=== PATIENT | male | born 1990 | race Caucasian/White ===

== ENCOUNTER 2017-11-05 16:51 | Inpatient (IN) ==
[2017-11-05] MEDS ORDERED: Sod Chloride 0.9% Inj 1,000 ML IV.SIG ONE ×2 (18:17→18:40)
[2017-11-05] MEDS ORDERED: Acetaminophen 500 MG Tablet PO ONE (18:22)
[2017-11-05 18:35] LABS: Baso # (Auto) 0.3 th/mm3 (0.0-0.2); Baso % (Auto) 1.3 % (0.0-2.0); Hemoglobin 15.2 gm/dL (13.0-17.0); Lymph % (Auto) 3.9 % (9.0-44.0); Mean Corpuscular HGB Conc 34.5 % (32.0-36.0); Mean Corpuscular Hemoglobin 31.5 pg (27.0-34.0); Mean Corpuscular Volume 91.3 fL (80.0-100.0); Mean Platelet Volume 7.1 fL (7.0-11.0); Mono # (Auto) 0.4 th/mm3 (0.0-0.9); Mono % (Auto) 1.6 % (0.0-8.0); Neut # (Auto) 23.6 th/mm3 (1.8-7.7); Neut % (Auto) 93.2 % (16.0-70.0); Platelet Count 275 th/mm3 (150-450); Red Blood Count 4.82 mil/mm3 (4.50-5.90); Red Cell Distribution Width 11.8 % (11.6-17.2); White Blood Count 25.3 th/mm3 (4.0-11.0)
[2017-11-05 18:43] LABS: Chloride 100 meq/L (98-107); Potassium 3.6 meq/L (3.5-5.1); Sodium 136 meq/L (136-145)
[2017-11-05 18:46] LABS: Bilirubin,Urine Negative (Negative); Clarity,Urine Clear (Clear); Color,Urine Yellow (Yellw/Straw); Glucose,Urine (UA) Negative (Negative); Leukocyte Esterase,Urine Negative (Negative); Nitrite,Urine Negative (Negative); PH,Urine 7.5 (5.0-8.5); Urobilinogen,Urine 0.2 mg/dL (Less than 2)
[2017-11-05 18:46] LABS: Calcium 8.9 mg/dL (8.5-10.1)
[2017-11-05 18:47] LABS: Albumin 4.3 g/dL (3.4-5.0); Anion Gap 7 meq/L (5-15); Blood Urea Nitrogen 16 mg/dL (7-18); Carbon Dioxide 28.9 meq/L (21.0-32.0); Glucose,Random 110 mg/dL (74-106); Lipase 64 U/L (73-393)
[2017-11-05 18:50] LABS: Alanine Aminotransferase 45 U/L (12-78); Aspartate Aminotransferase 23 U/L (15-37); Glomerular Filtration Rate 73 mL/min (>89)
[2017-11-05 18:51] LABS: Total Protein 7.6 g/dL (6.4-8.2)
[2017-11-05 18:51] LABS: RBC,Urine 0-3 /hpf (0-3); Squamous Epithelial Cell,Urine 0-5 /hpf (0-5); WBC,Urine 0-5 /hpf (0-5)
[2017-11-05 18:52] LABS: Alkaline Phosphatase 82 U/L (45-117)
[2017-11-05] MEDS ORDERED: Piperacil/Tazo 3.375 GM Premix 50 ML IV.SIG ONE (19:35)
[2017-11-05] MEDS ORDERED: Vancomycin Inj 1 GM/200 ML PIGGYBACK IV.SIG ONE (19:35)
--- NOTE | 2017-11-05 19:43 | ED ---
HPI General Chief Complaint: Ear Stated Complaint: Bilateral ear pain/fever x2-3days Time Seen by Provider: 11/05/17 18:11 Source: patient Mode of arrival: ambulatory Limitations: no limitations History of Present Illness HPI narrative: 27-year-old male complains of headache, earache, abdominal pain, shaking chills. Patient states that the symptoms started last night. Patient states that he has mild aching headache. Patient complains of earache and pressure on the ears. Patient was on an airplane trip and had severe ear pain during landing. Patient denies any neck pain. Patient denies any chest pain or shortness of breath. Patient denies any coughing. Patient states that he has diffuse cramping abdominal pain since last night. Patient denies any pain radiation. Patient states that he has nausea but no vomiting or diarrhea. Patient denies any dysuria or frequency. Patient complained of back pain. Patient complained extremity pain also. Patient denies any recent sick contact. MD complaint: abdominal pain Onset (ago): hour(s) Pain Consistency: constant Location: diffuse Severity: moderate Severity scale (1-10): 7 Quality: cramping Radiation: none Migration to: no migration Relieving factors: nothing Exacerbating factors: nothing Associated symptoms: nausea and chills Related Data Home Medications Medication Instructions Recorded Confirmed No Known Home Medications 11/05/17 11/05/17 Allergies Allergy/AdvReac Type Severity Reaction Status Date / Time No Known Allergies Allergy Verified 11/05/17 17:07 Review of Systems ROS: all other systems reviewed are negative PMFSH Medical History Medical History History of deviated nasal septum (Acute) Surgical History Surgical History History of placement of ear tubes (Acute) History of tonsillectomy and adenoidectomy (Acute) Social History Social History Substance History: No History of Abuse Smoking Status: Never smoker How Often Do You Have a Drink Containing Alcohol: Never Recent Travel in [facility] within the Last 8 Weeks: No Recent Out of Country Travel within the Last 8 Weeks: No Immunization History Tetanus Immunization: >5 Years Hx Influenza Vaccine This Season: No Exam Narrative Exam Narrative: GENERAL: Well-nourished, well-developed patient. SKIN: Focused skin assessment warm/dry. HEAD: Normocephalic. EYES: No scleral icterus. No injection or drainage. Both TM nonerythematous. Mild effusion behind the TM. Throat: Nonerythematous. NECK: Supple, trachea midline. No JVD or lymphadenopathy. No meningismus CARDIOVASCULAR: Regular rate and rhythm without murmurs, gallops, or rubs. RESPIRATORY: Breath sounds equal bilaterally. No accessory muscle use. GASTROINTESTINAL: Abdomen soft, nondistended. Patient has moderate tenderness on palpation of the abdomen. No rebound tenderness. Mild guarding noted. No mass. MUSCULOSKELETAL: No cyanosis, or edema. BACK: Nontender without obvious deformity. No CVA tenderness. Course Initial Documented Vital Signs Temperature 100.2 F H 11/05/17 17:04 Pulse Rate 115 H 11/05/17 17:04 Respiratory Rate 16 11/05/17 17:04 Blood Pressure 130/68 11/05/17 17:04 Pulse Oximetry 95 11/05/17 17:04 Last Documented Vital Signs Temperature 102.3 F H 11/05/17 18:17 Pulse Rate 105 H 11/05/17 19:49 Respiratory Rate 18 11/05/17 19:49 Blood Pressure 111/57 L 11/05/17 19:49 Pulse Oximetry 96 11/05/17 19:49 Medical Decision Making MDM Narrative Medical decision making narrative: 27-year-old male with chills, headache, abdominal pain, body ache. Normal saline solution 1 L IV bolus. Vancomycin 1 g IV. Zosyn 3.375 g IV given. Flagyl 500 mg IV given. Medical Screen Exam Complete: Yes Emergency Medical Condition: Yes Differential Diagnosis Differential Diagnosis: Differential diagnosis including viral syndrome, otitis media, pharyngitis, bronchitis, pneumonia, colitis, UTI, pyelonephritis, nephrolithiasis, appendicitis, sepsis. Lab Data Result diagrams: 11/05/17 18:25 11/05/17 18:25 Lab Results 11/05/17 11/05/17 11/05/17 Range/Units 18:25 18:25 18:43 CBC w Diff Auto diff final WBC 25.3 H (4.0-11.0) th/mm3 RBC 4.82 (4.50-5.90) mil/mm3 Hgb 15.2 (13.0-17.0) gm/dL Hct 44.0 (39.0-51.0) % MCV 91.3 (80.0-100.0) fL MCH 31.5 (27.0-34.0) pg MCHC 34.5 (32.0-36.0) % RDW 11.8 (11.6-17.2) % Plt Count 275 (150-450) th/mm3 MPV 7.1 (7.0-11.0) fL Neut % (Auto) 93.2 H (16.0-70.0) % Lymph % (Auto) 3.9 L (9.0-44.0) % [place] % (Auto) 1.6 (0.0-8.0) % Eos % (Auto) 0.0 (0.0-4.0) % Baso % (Auto) 1.3 (0.0-2.0) % Neut # (Auto) 23.6 H (1.8-7.7) th/mm3 Lymph # (Auto) 1.0 (1.0-4.8) th/mm3 [place] # (Auto) 0.4 (0.0-0.9) th/mm3 Eos # (Auto) 0.0 (0.0-0.4) th/mm3 Baso # (Auto) 0.3 H (0.0-0.2) th/mm3 WBC Differential . Differential Comment . Sodium 136 (136-145) meq/L Potassium 3.6 (3.5-5.1) meq/L Chloride 100 (98-107) meq/L Carbon Dioxide 28.9 (21.0-32.0) meq/L Anion Gap 7 (5-15) meq/L BUN 16 (7-18) mg/dL Creatinine 1.20 (0.60-1.30) mg/dL Estimated GFR 73 L (>89) mL/min Random Glucose 110 H (74-106) mg/dL Lactic Acid (0.4-2.0) mmol/L Calcium 8.9 (8.5-10.1) mg/dL Total Bilirubin 1.7 H (0.2-1.0) mg/dL AST 23 (15-37) U/L ALT 45 (12-78) U/L Alkaline Phosphatase 82 (45-117) U/L Total Protein 7.6 (6.4-8.2) g/dL Albumin 4.3 (3.4-5.0) g/dL Lipase 64 L (73-393) U/L Urine Color Yellow (Yellw/Straw) Urine Clarity Clear (Clear) Urine pH 7.5 (5.0-8.5) Ur Specific [place] 1.010 (1.002-1.035) Urine Protein 30 H (Neg-Trace) mg/dL Urine Glucose (UA) Negative (Negative) mg/dL Urine Ketones Negative (Negative) mg/dL Urine Occult Blood Negative (Negative) Urine Nitrate Negative (Negative) Urine Bilirubin Negative (Negative) Urine Urobilinogen 0.2 (Less than 2) mg/dL Ur Leukocyte Esterase Negative (Negative) Urine RBC 0-3 (0-3) /hpf Urine WBC 0-5 (0-5) /hpf Ur Squamous Epith Cells 0-5 (0-5) /hpf Micro UA Comment Culture not ind Ur Microscopic Review Microscopic reviewed Urine Culture Comments Culture not ind 11/05/17 Range/Units 18:50 CBC w Diff WBC (4.0-11.0) th/mm3 RBC (4.50-5.90) mil/mm3 Hgb (13.0-17.0) gm/dL Hct (39.0-51.0) % MCV (80.0-100.0) fL MCH (27.0-34.0) pg MCHC (32.0-36.0) % RDW (11.6-17.2) % Plt Count (150-450) th/mm3 MPV (7.0-11.0) fL Neut % (Auto) (16.0-70.0) % Lymph % (Auto) (9.0-44.0) % [place] % (Auto) (0.0-8.0) % Eos % (Auto) (0.0-4.0) % Baso % (Auto) (0.0-2.0) % Neut # (Auto) (1.8-7.7) th/mm3 Lymph # (Auto) (1.0-4.8) th/mm3 [place] # (Auto) (0.0-0.9) th/mm3 Eos # (Auto) (0.0-0.4) th/mm3 Baso # (Auto) (0.0-0.2) th/mm3 WBC Differential Differential Comment Sodium (136-145) meq/L Potassium (3.5-5.1) meq/L Chloride (98-107) meq/L Carbon Dioxide (21.0-32.0) meq/L Anion Gap (5-15) meq/L BUN (7-18) mg/dL Creatinine (0.60-1.30) mg/dL Estimated GFR (>89) mL/min Random Glucose (74-106) mg/dL Lactic Acid 2.1 H (0.4-2.0) mmol/L Calcium (8.5-10.1) mg/dL Total Bilirubin (0.2-1.0) mg/dL AST (15-37) U/L ALT (12-78) U/L Alkaline Phosphatase (45-117) U/L Total Protein (6.4-8.2) g/dL Albumin (3.4-5.0) g/dL Lipase (73-393) U/L Urine Color (Yellw/Straw) Urine Clarity (Clear) Urine pH (5.0-8.5) Ur Specific [place] (1.002-1.035) Urine Protein (Neg-Trace) mg/dL Urine Glucose (UA) (Negative) mg/dL Urine Ketones (Negative) mg/dL Urine Occult Blood (Negative) Urine Nitrate (Negative) Urine Bilirubin (Negative) Urine Urobilinogen (Less than 2) mg/dL Ur Leukocyte Esterase (Negative) Urine RBC (0-3) /hpf Urine WBC (0-5) /hpf Ur Squamous Epith Cells (0-5) /hpf Micro UA Comment Ur Microscopic Review Urine Culture Comments Imaging Data Radiologist's impression: Abdomen/Pelvis CT 11/05/17 18:37 CONCLUSION: 1. Abnormal appearance to the transverse colon with mucosal thickening causing a cobblestone appearance. This is a nonspecific finding and can be seen with Crohn's disease, infectious, and lymphoproliferative disorders. 2. Nonobstructing 5 mm right renal stone. Chest X-Ray 11/05/17 18:37 CONCLUSION: The lungs are clear. Discharge Plan Discharge Disposition Patient Disposition: 30 Still Patient Discharge Details Diagnosis: Sepsis, Colitis Physicians Team ED Provider: Tom Alvarenga ED Midlevel Provider: Janina Conrad Primary Care Provider: Primary Care Physici,No Rxs /Orders / Referrals /Forms Prescriptions: No Action No Known Home Medications RF: 0 Discharge Interventions Interventions: Vital Signs Last Done: 11/05/17 19:49 Status ED Status: With Doctor
--- NOTE | 2017-11-05 19:58 | XR ---
EXAM DATE: 11/05/2017 6:37 PM EDT AGE/SEX: 27 years / Male INDICATIONS: Fever. CLINICAL DATA: This is the patient's initial encounter. Patient reports that signs and symptoms have been present for 1 day and indicates a pain score of 0/10. MEDICAL/SURGICAL HISTORY: None. None. COMPARISON: No prior exams available for comparison. FINDINGS: A single AP view of the chest demonstrates the lungs to be symmetrically aerated without evidence of mass, infiltrate or effusion. The cardiomediastinal contours are unremarkable. Osseous structures a re intact. CONCLUSION: The lungs are clear. Electronically signed by: Brett Marcelo MD 11/05/2017 7:57 PM EDT
[2017-11-05] MEDS ORDERED: Vancomycin Inj 1,000 MG in Sodium Chlor 0.9% Inj 250 ML IV.SIG ONE (20:00)
--- NOTE | 2017-11-05 21:13 | CT ---
EXAM DATE: 11/05/2017 7:51 PM EDT AGE/SEX: 27 years / Male INDICATIONS: Non-specific abdominal pain. CLINICAL DATA: This is the patient's initial encounter. Patient reports that signs and symptoms have been present for 1 day and indicates a pain score of 3/10. MEDICAL/SURGICAL HISTORY: None. None. ORAL CONTRAST: No oral contrast ingested. RADIATION DOSE: 6.26 CTDI (mGy) COMPARISON: No prior exams available for comparison. TECHNIQUE: Multiple contiguous axial images were obtained through the abdomen and pelvis following b olus infusion of 95 ml Omnipaque 350 (iohexol) nonionic water-soluble contrast as a single exam dos e. No oral contrast ingested. Using automated exposure control and adjustment of the mA and/or kV ac cording to patient size, radiation dose was kept as low as reasonably achievable to obtain optimal di agnostic quality images. DICOM format image data is available electronically for review and comparis on. FINDINGS: Lower Lungs: The visualized lower lungs are clear. Liver: The liver has a homogeneous density without space-occupying lesion. There is no dilation of th e biliary tree. Spleen: Homogeneous density without enlargement. Pancreas: Unremarkable without mass or calcification. Kidneys: Normal in size and shape. No evidence of mass or hydronephrosis. 5 mm nonobstructing stone mid to upper pole calyx right kidney. No calcifications along the course of either ureter. Adrenal Glands: Unremarkable. Aorta: The aorta and proximal iliac vessels are grossly unremarkable without aneurysmal dilation. Bowel/Mesentery: There is an abnormal appearance to the transverse colon with wall thickening causin g a cobblestone configuration. No dilated loops of small or large bowel. Abdominal Wall: Intact. Retroperitoneum: No evidence of adenopathy in the retrocrural, para-aortic, or deep pelvic regions. Bladder: Contours are smooth. Reproductive Organs: No abnormal masses or calcifications seen. Inguinal: The inguinal region is unremarkable without evidence of adenopathy. Bony Structures: Unremarkable. CONCLUSION: 1. Abnormal appearance to the transverse colon with mucosal thickening causing a cobblestone appeara nce. This is a nonspecific finding and can be seen with Crohn's disease, infectious, and lymphoprolif erative disorders. 2. Nonobstructing 5 mm right renal stone. Electronically signed by: Brett Marcelo MD 11/05/2017 9:12 PM EDT
[2017-11-05] MEDS ORDERED: Bisacodyl 10 MG Supp RECTAL PRN (21:58)
[2017-11-05] MEDS ORDERED: Piperacil/Tazo 3.375 GM Premix 50 ML IV.SIG SCH (22:00)
[2017-11-05] MEDS: Sod Chloride 0.9% Inj 1,000 ML IV.CONT SCH (22:43)
[2017-11-05 22:58] LABS: Amphetamine Screen,Urine Neg (Neg); Barbiturate Screen,Urine Neg (Neg); Cannabinoid Screen,Urine Neg (Neg)
[2017-11-05 22:59] LABS: Cocaine Screen,Urine Neg (Neg)
[2017-11-05 23:10] LABS: Opiate Screen,Urine Neg (Neg)
[2017-11-06] MEDS: Piperacil/Tazo 3.375 GM Premix 50 ML IV.SIG SCH ×4 (02:36→20:06)
[2017-11-06 05:10] LABS: Baso # (Auto) 0.1 th/mm3 (0.0-0.2); Baso % (Auto) 0.4 % (0.0-2.0); Eos % (Auto) 0.2 % (0.0-4.0); Hemoglobin 12.3 gm/dL (13.0-17.0); Lymph % (Auto) 6.5 % (9.0-44.0); Mean Corpuscular HGB Conc 34.2 % (32.0-36.0); Mean Corpuscular Hemoglobin 31.5 pg (27.0-34.0); Mean Corpuscular Volume 92.1 fL (80.0-100.0); Mean Platelet Volume 7.6 fL (7.0-11.0); Mono # (Auto) 0.4 th/mm3 (0.0-0.9); Mono % (Auto) 2.7 % (0.0-8.0); Neut # (Auto) 14.3 th/mm3 (1.8-7.7); Neut % (Auto) 90.2 % (16.0-70.0); Platelet Count 208 th/mm3 (150-450); Red Blood Count 3.91 mil/mm3 (4.50-5.90); Red Cell Distribution Width 12.3 % (11.6-17.2); White Blood Count 15.8 th/mm3 (4.0-11.0)
[2017-11-06 05:25] LABS: Albumin 3.2 g/dL (3.4-5.0); Anion Gap 6 meq/L (5-15); Blood Urea Nitrogen 11 mg/dL (7-18); Calcium 7.8 mg/dL (8.5-10.1); Carbon Dioxide 26.7 meq/L (21.0-32.0); Chloride 109 meq/L (98-107); Glucose,Random 104 mg/dL (74-106); Potassium 3.7 meq/L (3.5-5.1); Sodium 142 meq/L (136-145)
[2017-11-06 05:30] LABS: Alanine Aminotransferase 33 U/L (12-78); Alkaline Phosphatase 62 U/L (45-117); Aspartate Aminotransferase 17 U/L (15-37); Glomerular Filtration Rate Greater Than 89 mL/min (>89); Total Protein 5.8 g/dL (6.4-8.2)
[2017-11-06] MEDS: Acetaminophen 325 MG Tablet PO PRN ×2 (06:22→14:19)
[2017-11-06] MEDS: Sod Chloride 0.9% Inj 1,000 ML IV.CONT SCH ×2 (09:04→20:06)
--- NOTE | 2017-11-06 11:44 | P.HPIM ---
History of Present Illness Primary Care Physician: No Primary Care Physician History of Present Illness: Mr. Aguero is a 27-year-old male. He was admitted secondary to sepsis with evidence of colitis. He also complained of bilateral ear pain. He noticed his ear pain upon flying back from [place]. 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 Recurrent otitis media is a problem for him. Abdominal pain and diarrhea are present at time of admit and remain present this morning. Imaging showed evidence of colitis. GI has been consulted. Overall he is feeling better this morning. He is receiving Flagyl and Zosyn as treatments. - Diagnosis (1) Sepsis (2) Colitis Inpatient Certification: I certify that the inpatient services were ordered in accordance with Medicare regulations governing the order. This includes certification that hospital inpatient services are reasonable and necessary and in the case of services not specified as inpatient-only under 42 CFR 419.22(n), that they are appropriately provided as inpatient services in accordance to with the 2-midnight benchmark under 43 CFR 412.3(e) Estimated Total Length of Stay (Days): 2 Plans for Post Hospital Care: Home Review of Systems Constitutional: No fevers, no chills no night sweats, no fatigue, no weakness Eyes: No eye pain, no blurry vision, no loss of vision ENT: No sore throat, bilateral ear pain, no rhinorrhea Cardiovascular: No chest pain, no tachycardia, no palpitations, no shortness of breath, no syncope Respiratory: No wheezing, no cough, no shortness of breath Gastrointestinal: abdominal pain, no black tarry stools, no bright red blood per rectum, no vomiting, diarrhea Musculoskeletal: No joint pain, no muscle cramps, no stiffness Integumentary: No rash, no ulcers, no drainage Neurologic: No sensory loss, no loss of motor function, no dizziness Psychiatric: No behavioral changes, no hallucinations, no suicidal ideations PMFSH - History History Provided By: Patient - Medical History Medical History: Medical History (Last Reviewed 11/05/17 @ 19:40 by Tom Alvarenga MD) History of deviated nasal septum - Surgical History Surgical History: Surgical History (Last Reviewed 11/05/17 @ 19:40 by Tom Alvarenga MD) History of placement of ear tubes History of tonsillectomy and adenoidectomy - Family History Family History: Family History (Last Updated 11/06/17 @ 11:40 by Terrell Singh MD) Other Osteoarthritis - Tobacco History Second Hand Smoke Exposure: Yes Tobacco Use In Past 30 Days: Yes Smoking Status: Current every day smoker Tobacco Type: E-Cigarettes - Alcohol History How Often Do You Have a Drink Containing Alcohol: Monthly or less - Substance Use History Substance History: No History of Abuse - Travel History Recent Travel in the [place] Within the Last 8 Weeks: No Recent Travel Out of the Country Within the Last 8 Weeks: No - Immunization History Tetanus Immunization: <5 Years Hx Influenza Vaccine This Season: No Medications and Allergies Active Medications: Active Medications Acetaminophen (Tylenol) 650 mg PO Q4H PRN PRN Reason: escamilla or fever Last Admin: 11/06/17 06:22 Dose: 650 mg Al Hydroxide/Mg Hydroxide (Milk Of Magnesia Liq) 30 ml PO Q12H PRN PRN Reason: Mild Constipation Bisacodyl (Dulcolax Supp) 10 mg RECTAL DAILY PRN PRN Reason: SEVERE CONSITIPATION Sodium Chloride (Ns Inj) 1,000 mls @ 100 mls/hr IV.CONT .Q10H [facility] Last Admin: 11/06/17 09:04 Dose: 100 mls/hr Piperacillin/Tazobactam/Dextrose (Zosyn 3.375 Gm Premix) 50 mls @ 100 mls/hr IV.SIG Q6H [facility] Last Infusion: 11/06/17 10:49 Dose: Infused Lactulose (Lactulose Liq) 30 ml PO DAILY PRN PRN Reason: SEVERE CONSITIPATION Sennosides (Senokot) 17.2 mg PO Q12H PRN PRN Reason: Moderate Constipation Sodium Chloride (Ns Flush) 2 ml IV.FLUSH PRN PRN PRN Reason: FLUSH AFTER USING IV ACCESS Allergies Allergy/AdvReac Type Severity Reaction Status Date / Time No Known Allergies Allergy Verified 11/05/17 17:07 Home Medications Medication Instructions Recorded Confirmed Type No Known Home Medications 11/05/17 11/05/17 History Exam Vital signs: Vital Signs 11/05/17 17:04 11/05/17 18:15 11/05/17 18:17 Temperature 100.2 F H 102.3 F H Pulse Rate 115 H 107 H 108 H Respiratory Rate 16 22 Blood Pressure 130/68 123/65 Pulse Oximetry 95 100 11/05/17 18:37 11/05/17 19:49 11/05/17 20:00 Temperature Pulse Rate 105 H Respiratory Rate 18 Blood Pressure 111/57 L Pulse Oximetry 99 96 94 L 11/05/17 22:16 11/06/17 00:36 11/06/17 01:00 Temperature 98.7 F 98.7 F 99.5 F Pulse Rate 86 90 88 Respiratory Rate 18 17 12 Blood Pressure 106/56 L 118/67 118/72 Pulse Oximetry 97 11/06/17 02:33 11/06/17 03:00 11/06/17 04:00 Temperature Pulse Rate 94 H 92 H 90 Respiratory Rate 19 18 16 Blood Pressure 110/54 L 93/45 L 105/57 L Pulse Oximetry 11/06/17 05:00 11/06/17 06:00 11/06/17 07:00 Temperature Pulse Rate 88 84 88 Respiratory Rate 17 17 12 Blood Pressure 84/44 L 101/51 L 99/46 L Pulse Oximetry 11/06/17 08:00 11/06/17 08:33 11/06/17 09:00 Temperature 98.2 F Pulse Rate 78 78 66 Respiratory Rate 6 L 13 Blood Pressure 96/50 L 101/57 L Pulse Oximetry 95 95 11/06/17 09:13 Temperature Pulse Rate 78 Respiratory Rate 14 Blood Pressure 102/49 L Pulse Oximetry 96 Intake & Output 11/05/17 11/06/17 11/06/17 18:59 06:59 18:59 Intake Total 2450 / 2450 1050 / 1050 Balance 2450 / 2450 1050 / 1050 Weight 67.3 kg 71.4 kg Intake: IV 2450 / 2450 1050 / 1050 NS Inj 1,000 ML @ 100 mls/hr IV 1000 / 1000 .CONT .Q10H JOHN Rx#:[id number] Zosyn 3.375 GM Premix 50 ML @ 100 / 100 50 / 50 100 mls/hr IV.SIG Q6H JOHN Rx#: [id number] NS Inj 1,000 ML @ Wide Open IV. 1999 SIG BOLUS ONE Rx#:[id number] Vancomycin Inj 1,000 MG In NS 250 / 250 Inj 250 ML @ 250 mls/hr IV.SIG ONCE ONE Rx#:[id number] Flagyl 500 MG Inj 100 ML @ 100 100 / 100 mls/hr IV.SIG ONCE ONE Rx#: [id number] Other: Date of Last Bowel Movement 11/05/17 11/06/17 # Bowel Movements 1 Weight On Admission 71.1 kg Narrative: GENERAL: NAD, A&Ox3 HEAD: Normocephalic. Mild erythema at bilateral ears and mild purulence behind tympanic membrane of right ear NECK: Supple, trachea midline. No lymphadenopathy. EYES: No scleral icterus. No injection or drainage. CARDIOVASCULAR: Regular rate and rhythm without murmurs, gallops, or rubs. RESPIRATORY: Breath sounds equal bilaterally. No accessory muscle use. GASTROINTESTINAL: Abdomen soft, non-tender, nondistended. MUSCULOSKELETAL: No cyanosis, or edema. SKIN: Warm and dry. NEURO: No focal neurological deficits. Results - Labs CBC & Chem 7: 11/06/17 04:30 11/06/17 04:30 Labs: Short CBC 11/05/17 11/06/17 Range/Units 18:25 04:30 WBC 25.3 H 15.8 H (4.0-11.0) th/mm3 Hgb 15.2 12.3 L D (13.0-17.0) gm/dL Hct 44.0 36.0 L (39.0-51.0) % Plt Count 275 208 (150-450) th/mm3 BMP 11/05/17 11/06/17 18:25 04:30 Sodium 136 142 Potassium 3.6 3.7 Chloride 100 109 H D Carbon Dioxide 28.9 26.7 BUN 16 11 Creatinine 1.20 0.92 Calcium 8.9 7.8 L D Liver Function 11/05/17 11/06/17 Range/Units 18:25 04:30 Total Bilirubin 1.7 H 1.4 H (0.2-1.0) mg/dL AST 23 17 (15-37) U/L ALT 45 33 (12-78) U/L Alkaline Phosphatase 82 62 (45-117) U/L Albumin 4.3 3.2 L D (3.4-5.0) g/dL Urine 11/05/17 Range/Units 18:43 Urine Color Yellow (Yellw/Straw) Urine Clarity Clear (Clear) Urine pH 7.5 (5.0-8.5) Ur Specific [place] 1.010 (1.002-1.035) Urine Protein 30 H (Neg-Trace) mg/dL Urine Glucose (UA) Negative (Negative) mg/dL - Imaging Impressions Abdomen/Pelvis CT 11/05/17 18:37 CONCLUSION: 1. Abnormal appearance to the transverse colon with mucosal thickening causing a cobblestone appearance. This is a nonspecific finding and can be seen with Crohn's disease, infectious, and lymphoproliferative disorders. 2. Nonobstructing 5 mm right renal stone. Chest X-Ray 11/05/17 18:37 CONCLUSION: The lungs are clear. Caprini VTE Risk Assessment Caprini VTE Risk Assessment: No/Low Risk (score <= 1) Caprini Risk Assessment Model: Point Value = 1 Point Value = 2 Point Value = 3 Point Value = 5 Age 41-60 Minor surgery BMI > 25 kg/m2 Swollen legs Varicose veins or History of unexplained or recurrent spontaneous Oral contraceptives or hormone replacement Sepsis (< 1 month) Serious lung disease, including pneumonia (< 1 month) Abnormal pulmonary function Acute myocardial infarction Congestive heart failure (< 1 month) History of inflammatory bowel disease Medical patient at bed rest Age 61-74 Arthroscopic surgery Major open surgery (> 45 min) Laparoscopic surgery (> 45 min) Malignancy Confined to bed (> 72 hours) Immobilizing plaster cast Central venous access Age >= 75 History of VTE Family history of VTE Factor V Leiden Prothrombin [id number] Lupus anticoagulant Anticardiolipin antibodies Elevated serum homocysteine Heparin-induced thrombocytopenia Other congenital or acquired thrombophilia Stroke (< 1 month) Elective arthroplasty Hip, pelvis, or leg fracture Acute spinal cord injury (< 1 month) Prophylaxis Regimen: Total Risk Factor Score Risk Level Prophylaxis Regimen 0-1 Low Early ambulation 2 Moderate Order ONE of the following: *Sequential Compression Device (SCD) *Heparin 5000 units SQ BID 3-4 Higher Order ONE of the following medications: *Heparin 5000 units SQ TID *Enoxaparin/Lovenox 40 mg SQ daily (WT < 150 kg, CrCl > 30 mL/min) *Enoxaparin/Lovenox 30 mg SQ daily (WT < 150 kg, CrCl > 10-29 mL/min) *Enoxaparin/Lovenox 30 mg SQ BID (WT < 150 kg, CrCl > 30 mL/min) AND/OR *Sequential Compression Device (SCD) 5 or more Highest Order ONE of the following medications: *Heparin 5000 units SQ TID (Preferred with Epidurals) *Enoxaparin/Lovenox 40 mg SQ daily (WT < 150 kg, CrCl > 30 mL/min) *Enoxaparin/Lovenox 30 mg SQ daily (WT < 150 kg, CrCl > 10-29 mL/min) *Enoxaparin/Lovenox 30 mg SQ BID (WT < 150 kg, CrCl > 30 mL/min) AND *Sequential Compression Device (SCD) Assessment and Plan - Assessment (1) Sepsis Code(s): A41.9 - Sepsis, unspecified organism Status: Acute (2) Colitis Code(s): K52.9 - Noninfective gastroenteritis and colitis, unspecified Status : Acute - Plan 27-year-old male admitted secondary to sepsis and colitis Sepsis Resolved Monitor for recurrence Continue to monitor vital signs Otitis media, right ear Continue Zosyn Follow clinically for improvement Antihistamine added Colitis No prior history of colitis Screen for C. difficile Continue Flagyl GI Following DVT Prophylaxis Ambulatory H&P: Quality - VTE Deep Vein Thrombosis/Pulmonary Embolism Present on Admission: No (1) Sepsis Qualifiers: Sepsis type: sepsis due to unspecified organism Qualified Code(s): A41.9 - Sepsis, unspecified organism
[2017-11-06] MEDS: Loratadine 10 MG Tablet PO SCH (14:20)
[2017-11-07] MEDS: Piperacil/Tazo 3.375 GM Premix 50 ML IV.SIG SCH ×2 (02:13→07:48)
[2017-11-07] MEDS: Sod Chloride 0.9% Inj 1,000 ML IV.CONT SCH (06:03)
[2017-11-07 06:19] LABS: Chloride 109 meq/L (98-107); Potassium 3.5 meq/L (3.5-5.1); Sodium 142 meq/L (136-145)
[2017-11-07 06:23] LABS: Albumin 3.1 g/dL (3.4-5.0); Anion Gap 7 meq/L (5-15); Blood Urea Nitrogen 7 mg/dL (7-18); Carbon Dioxide 26.5 meq/L (21.0-32.0); Glucose,Random 87 mg/dL (74-106)
[2017-11-07 06:26] LABS: Alanine Aminotransferase 42 U/L (12-78); Aspartate Aminotransferase 25 U/L (15-37); Glomerular Filtration Rate Greater Than 89 mL/min (>89)
[2017-11-07 06:28] LABS: Total Protein 5.7 g/dL (6.4-8.2)
[2017-11-07 06:29] LABS: Alkaline Phosphatase 53 U/L (45-117)
[2017-11-07 08:13] VITALS: BP 109/62; RESP 19; TEMP 97.9; O2SAT 98
[2017-11-07] MEDS: Loratadine 10 MG Tablet PO SCH (08:47)
[2017-11-07 09:35] VITALS: PULSE 55
--- NOTE | 2017-11-07 10:50 | P.DS ---
Date of admission: 11/05/17 22:54 Primary care physician: No Primary Care Physician Brief History from admission: Mr. Aguero is a 27-year-old male. He was admitted secondary to sepsis with evidence of colitis. He also complained of bilateral ear pain. He noticed his ear pain upon flying back from [place]. 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 Recurrent otitis media is a problem for him. Abdominal pain and diarrhea are present at time of admit and remain present this morning. Imaging showed evidence of colitis. GI has been consulted. Overall he is feeling better this morning. He is receiving Flagyl and Zosyn as treatments. DS: Diagnosis - Discharge Diagnosis (1) Sepsis Status: Acute (2) Colitis Status: Acute DS: Medications - Discharge Medications Prescriptions: amoxicillin-pot clavulanate [Augmentin] 1 tab PO BID #10 tab Lactobacillus acidophilus 500 mmu cells PO TID #24 cap DS: Summary Hospital Course: Mr. Aguero is a 27-year-old male. He has a past medical history of recurrent otitis media. He came to the hospital secondary to bilateral ear pain with more significant pain at the right ear. He has had previous problem with flight in pain when the plane was landing. Additionally he had diarrhea. Imaging showed evidence of colitis. C. difficile testing is negative. No prior episodes occurred like this before so suspicion for Crohn's disease is low. The patient does have improvement in his diarrhea since yesterday. Zosyn for his right-sided otitis media. Symptoms are improved today. No further sepsis. He is medically stable and cleared for discharge home today. - Time Spent with Patient Total time spent providing and/or coordinating discharge services: Less than 30 minutes - Quality: VTE Deep Vein Thrombosis/Pulmonary Embolism Present on Admission: No Exam Vital signs: Vital Signs 11/06/17 12:00 11/06/17 12:05 11/06/17 16:00 Temperature 98.3 F 98.7 F Pulse Rate 65 80 73 Respiratory Rate 14 16 16 Blood Pressure 105/61 105/61 115/65 Pulse Oximetry 98 98 98 11/06/17 19:15 11/06/17 20:00 11/06/17 23:58 Temperature 98.3 F 97.6 F Pulse Rate 63 64 Respiratory Rate 16 24 Blood Pressure 120/67 117/63 Pulse Oximetry 96 99 100 11/07/17 04:00 11/07/17 08:00 11/07/17 09:00 Temperature 97.5 F L 97.9 F Pulse Rate 59 L 64 55 L Respiratory Rate 8 L 19 Blood Pressure 109/61 109/62 Pulse Oximetry 97 98 Intake & Output 11/06/17 11/07/17 11/07/17 18:59 06:59 18:59 Intake Total 1100 / 1100 2220 / 2220 250 / 250 Balance 1100 / 1100 2220 / 2220 250 / 250 Weight 72.6 kg Intake: IV 1100 / 1100 2100 / 2100 250 / 250 NS Inj 1,000 ML @ 100 mls/hr IV 1000 / 1000 2000 / 2000 200 / 200 .CONT .Q10H JOHN Rx#:[id number] Zosyn 3.375 GM Premix 50 ML @ 100 / 100 100 / 100 50 / 50 100 mls/hr IV.SIG Q6H JOHN Rx#: [id number] Oral 120 / 120 Other: Date of Last Bowel Movement 11/06/17 11/06/17 11/07/17 # Bowel Movements 1 Results Procedures completed during hospitalization: None Labs on day of discharge: Labs from last 24 hours 11/07/17 11/06/17 04:15 16:11 Sodium 142 Potassium 3.5 Chloride 109 H Carbon Dioxide 26.5 Anion Gap 7 BUN 7 Creatinine 0.79 Estimated GFR Greater than 89 Random Glucose 87 Calcium 8.0 L Total Bilirubin 0.7 AST 25 ALT 42 Alkaline Phosphatase 53 Total Protein 5.7 L Albumin 3.1 L Stl C.difficile Tox PCR Negative St C. diff Tox Epid 027 Negative Preliminary micro results at discharge 11/05/17 18:55 Aerobic Blood Culture - Preliminary Blood - Peripheral No growth in 1 day Anaerobic Blood Culture - Preliminary No growth in 1 day 11/05/17 18:50 Aerobic Blood Culture - Preliminary Blood - Peripheral No growth in 1 day Anaerobic Blood Culture - Preliminary No growth in 1 day - Impressions ITS Impressions Abdomen/Pelvis CT 11/05/17 18:37 CONCLUSION: 1. Abnormal appearance to the transverse colon with mucosal thickening causing a cobblestone appearance. This is a nonspecific finding and can be seen with Crohn's disease, infectious, and lymphoproliferative disorders. 2. Nonobstructing 5 mm right renal stone. Chest X-Ray 11/05/17 18:37 CONCLUSION: The lungs are clear. Discharge Plan - Discharge Disposition Patient Disposition: 01 Discharge Home - Discharge Condition Condition: Stable - Discharge Order Discharge Orders: Discharge Order (Routine); Ordered 11/07/17 Ordered By: Terrell Singh - Discharge Details Anticipated Discharge Date: 11/07/17 - Physicians Team Primary Care Provider: Primary Care Alexsander,Mattie Attending Provider: Terrell Singh
== END 2017-11-07 10:20 | disposition home or self-care (01) ==
LOC: PHEFT 16:51 → PHEDA 22:54 → PHICU 11-06 00:35
PROVIDERS: ADMIT Hospitalist; ATTEND Hospitalist